=== PATIENT | male | born 1990 | race Caucasian/White ===

== ENCOUNTER 2020-07-30 07:35 | Emergency (ER) | payer OTHER, SELFPAY ==
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
[2020-07-30 07:44] VITALS: BP 118/80; BP 140/82; PULSE 81; PULSE 88; RESP 16; TEMP 36.7; O2SAT 100; O2SAT 99; BMI 23.9
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
[2020-07-30] MEDS: Cyclobenzaprine HCl 10 MG TABLET PO (08:06)
[2020-07-30] MEDS: HYDROcodone Bit/Acetam 5/325 TABLET 1 TAB PO (08:07)
[2020-07-30 09:59] VITALS: BP 113/71; PULSE 71; RESP 17; TEMP 36.7; O2SAT 99
== END 2020-07-30 10:05 | disposition home or self-care (01) ==
PROVIDERS: Emergency Provider Emergency Medicine
DX: S13.4XXA Sprain of ligaments of cervical spine, initial encounter (principal); S76.011A Strain of muscle, fascia and tendon of right hip, initial encounter; S46.911A Strain of unspecified muscle, fascia and tendon at shoulder and upper arm level, right arm, initial encounter; V43.52XA Car driver injured in collision with other type car in traffic accident, initial encounter; F17.200 Nicotine dependence, unspecified, uncomplicated; Y93.9 Activity, unspecified; Y92.414 Local residential or business street as the place of occurrence of the external cause; Y99.9 Unspecified external cause status
CPT/HCPCS: 70450; 71045; 72125; 73030; 73502; 99284

== ENCOUNTER 2020-09-14 16:09 | Outpatient (REF) | payer OTHER, SELFPAY | END 2020-09-14 16:10 | disposition home or self-care (01) | LOC: HO.LAB 16:09 | PROVIDERS: Visit Provider Internal Medicine | DX: Z20.822 Contact with and (suspected) exposure to COVID-19 (principal) | CPT/HCPCS: 36415; C9803; U0003 ==

== ENCOUNTER 2022-08-12 06:04 | Emergency (ER) | payer SELFPAY ==
--- NOTE | ~2022-08-12 | XR_ITS ---
EXAMINATION: XR CHEST CLINICAL INFORMATION: Respiratory symptoms. COMPARISON: None TECHNIQUE: Frontal view of the chest was obtained. FINDINGS: The lungs are expanded with mild prominence of pulmonary vascularity with no edema suspected. There is no pleural effusion. The heart size and pulmonary vascularity is normal. No gross bony abnormality seen. XR/XR chest 1V IMPRESSION: Mild prominence of pulmonary vascularity but no edema suspected.
[2022-08-12 06:05] VITALS: BP 130/81; PULSE 99; RESP 17; TEMP 36.8; O2SAT 98; BMI 22.1
[2022-08-12 06:36] VITALS: BP 130/81; PULSE 99; RESP 17; TEMP 36.8; O2SAT 98
[2022-08-12 07:01] LABS: Influenza A PCR NEGATIVE (Negative); Influenza B PCR NEGATIVE (Negative); Resp Syncy Virus RNA Qual PCR NEGATIVE (Negative); SARS COV2 PCR INHOUSE POSITIVE (Negative)
--- NOTE | 2022-08-12 07:15 | ED_ITS ---
HPI - Fever General Chief Complaint: Headache Stated Complaint: flu symptoms Time Seen by Provider: 08/12/22 06:52 Source: patient Mode of arrival: ambulatory Limitations: no limitations History of Present Illness HPI Narrative: 32 year old male presents to the ER with fever and body aches since last night. He states he is vaccinated for covid and flu. He denies any falls but has pain all over last time he took anything was last night. He states he is otherwise healthy. Someone in his house has covid. elicited complaint: fever Related Data Allergies Allergy/AdvReac Type Severity Reaction Status Date / Time No Known Allergies Allergy Unverified 05/14/20 18:23 Review of Systems Review of Systems: Review of systems: General: fever chills Patient denies any recent illness or falls Musculoskeletal: body achesDenies back pain or or other injuries HEENT: headache denies, runny nose, ear pain Respiratory: denies shortness of breath, cough Cardiovascular: no chest pain or palpitations : denies dysuria, frequency Abdomen: no nausea vomiting denies abdominal pain Extremities: no swelling, no pain Skin: no diaphoresis Yes all other systems are reviewed and are negative PMFSH Social History Social History Smoked in Last 30 Days: Yes Use of substances other than those prescribed or required for medical reasons: Yes Substance Use Type: Marijuana Substance Use Frequency: Daily Advance Directives: No Advance Directives Information Provided: Yes Physical Exam Vital Signs: Vital Signs: Last Vital Signs Temp 99.7 F 08/12/22 07:20 Pulse 64 08/12/22 07:20 Resp 16 08/12/22 07:20 BP 125/75 08/12/22 07:20 Pulse Ox 99 08/12/22 07:20 O2 Del Method 08/12/22 07:20 BMI result Body Mass Index 22.1 General: Well-appearing well-nourished in no signs of distress HEENT: Normocephalic atraumatic Neck: No signs of JVD, no masses no tenderness or lymphadenopathy Cardiovascular: Regular rate and rhythm Respiratory: Clear to auscultation bilaterally Abdomen: Soft nontender no masses Extremities: Normal pedal pulses no signs of edema Skin: Dry warm no rashes Back: No tenderness full ROM Medications Administered Generic Name Dose Route Start Last Admin Trade Name Freq PRN Reason Stop Dose Admin Sodium Chloride 1,000 mls @ 999 mls/hr 08/12/22 07:15 08/12/22 07:46 Ns IV 08/12/22 08:15 999 mls/hr .[id number] ZULEIKA Administration Discontinued Medications Generic Name Dose Route Start Last Admin Trade Name Aneesh PRN Reason Stop Dose Admin Acetaminophen 650 mg 08/12/22 07:14 08/12/22 07:47 Acetaminophen 325 Mg Tablet PO 08/12/22 07:15 650 mg ONCE ONE Administration Ketorolac Tromethamine 15 mg 08/12/22 07:14 08/12/22 07:46 Ketorolac Tromethamine 15 Mg/Ml Vial IVPUSH 08/12/22 07:15 15 mg ONCE ONE Administration Medical Decision Making Medical Decision Making [facility] Narrative: Patient here after high risk covid exposure with fever. Differential Diagnosis Differential Diagnoses: The differential diagnosis associated with the presentation includes Covid more likely with high risk exposure, influenza viral infection otherwise not tested. I feel he does not have sepsis or concerns for pneumonia with a negative XR. Admission/Observation Consideration of admission/observation: Escalation of care including admission/observation considered Patient looks to well and responded well to tylenol and toradl Lab Data [facility] Lab Attestation statement: I reviewed the patient's lab results. Labs: Lab Results 08/12/22 Range/Units 06:16 Influenza Type A (PCR) NEGATIVE (Negative) Influenza Type B (PCR) NEGATIVE (Negative) RSV RNA Qual (PCR) NEGATIVE (Negative) SARS-CoV-2 RNA (RT-PCR) POSITIVE A (Negative) Discharge Plan Discharge Clinical Impression: Headache, Fever, COVID Patient Disposition: Home, Self-Care Instructions: Fever in Adults (ED), Influenza (ED), Upper Respiratory Infection (ED) Additional Instructions: Please continue to take tylenol. If you have any other concerns please return to the ED. Stand Alone Forms: Work/School Release
[2022-08-12 07:20] VITALS: BP 125/75; PULSE 64; RESP 16; TEMP 37.6; O2SAT 99
[2022-08-12] MEDS: Ketorolac Tromethamine 15 MG/ML VIAL IVPUSH (07:46)
[2022-08-12] MEDS: 0.9 % Sodium Chloride 1,000 ML 999 ML IV (07:46)
[2022-08-12] MEDS: Acetaminophen 325 MG TABLET 650 MG PO (07:47)
--- NOTE | 2022-08-12 08:15 | PC.NURSE ---
PT IS COVID POSITIVE. HE WAS MEDICATED CHARTED . IV FLUIDS INFUSING.
== END 2022-08-12 09:12 | disposition home or self-care (01) ==
PROVIDERS: Emergency Provider Student in an Organized Health Care Education/Training Program
DX: U07.1 COVID-19 (principal); R51.9 Headache, unspecified; R50.9 Fever, unspecified; F12.90 Cannabis use, unspecified, uncomplicated
CPT/HCPCS: 0241U; 71045; 96361; 96374; 99284; 99285; J1885

== ENCOUNTER 2022-12-09 15:50 | Emergency (ER) | payer SELFPAY ==
[2022-12-09 16:05] VITALS: BP 136/97; PULSE 116; RESP 16; TEMP 35.9; O2SAT 99; BMI 22.1
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
[2022-12-09] MEDS: Diphth,Pertus(ACell),Tet Adult 0.5 ML SYRINGE IM (16:22)
== END 2022-12-09 16:26 | disposition home or self-care (01) ==
LOC: HO.ED 16:11
PROVIDERS: Emergency Provider Emergency Medicine
DX: S91.341A Puncture wound with foreign body, right foot, initial encounter (principal); W45.0XXA Nail entering through skin, initial encounter; Y93.89 Activity, other specified; Y92.9 Unspecified place or not applicable; Y99.9 Unspecified external cause status
CPT/HCPCS: 90471; 90715; 99282; 99284